=== PATIENT | female | born 2005 | race Caucasian/White ===

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

== ENCOUNTER 2024-04-28 00:34 | Observation (INO) | payer OTHER ==
[2024-04-28] VITALS (10 sets, daily range): BP systolic 99–127; BP diastolic 41–82
[~2024-04-28] VITALS: Ht 160 cm; Wt 88.0 kg
[2024-04-28] MEDS ORDERED: HYDROXYZINE PA100 MG PO (00:43)
[2024-04-28] MEDS ORDERED: DEPAKOTE ER500 MG PO (00:43)
[2024-04-28] MEDS ORDERED: EFFEXOR XR75 MG PO (00:43)
[2024-04-28 00:53] LABS: BASOPHILS 0.4 % (0-2); EOSINOPHILS 0.5 % (0-6); HEMATOCRIT 43.8 % (35.0-50.0); HEMOGLOBIN 14.8 g/dL (12.0-18.0); LYMPHOCYTES 32.8 % (24-44); MCH 29.1 (27-36); MCHC 33.9 g/dl (30-36); MCV 85.9 fl (81-99); MONOCYTES 4.4 % (0-12); NEUTROPHILS 61.9 % (39-80); PLATELET COUNT 391 K/uL (140-440); RDW 14.4 (10.5-15.0)
[2024-04-28 01:21] LABS: ACETAMINOPHEN 0 ug/mL (10-30); ALBUMIN 4.3 g/dL (3.4-5.0); ALBUMIN/GLOBULIN RATIO 1.02 (1.1-2.4); ALCOHOL, MEDICAL 181 ng/dL (<3); ALKALINE PHOSPHATASE 58 U/L (46-116); ALT (SGPT) 15 U/L (14-59); ANION GAP 19.7 (7-21); AST (SGOT) 10 U/L (15-37); BILIRUBIN, TOTAL 0.2 ng/dL (0.2-1.0); BUN/CREATININE RATIO 10.84 (6.0-28.6); CALCIUM 9.1 mg/dL (8.5-10.1); CARBON DIOXIDE 25 mmol/L (21-32); CHLORIDE 104 mmol/L (98-107); CREATININE, SERUM 0.83 mg/dL (0.55-1.02); GLOMERULAR FILTRATION RATE,EST 103 mL/min (>60); POTASSIUM 3.7 mmol/L (3.5-5.1); PROTEIN, TOTAL 8.5 g/dL (6.4-8.2); SALICYLATE 2.4 mg/dL (2.8-20.0); TSH, 3RD GENERATION 1.145 uIU/mL (0.516-4.130); UREA NITROGEN 9 mg/dL (7-18)
[2024-04-28 01:22] LABS: VALPROIC ACID 344 ug/mL (50-100)
[2024-04-28] MEDS ORDERED: LACTATED RINGER'S 1,000 ML IV ONE (01:30)
[2024-04-28] MEDS ORDERED: SODIUM CHLORIDE 0.9% 1,000 ML IV SCH (02:00)
[2024-04-28] MEDS ORDERED: ondansetron HCL 4 MG/2 ML VIAL IV PRN (02:00)
--- NOTE | 2024-04-28 03:35 | NUR ---
Patient arrives to CCU unit via stretcher. Agitated and anxious. Able to redirect with touch/talk at this time. VSS. Sinus tachy. Afebrile. Pt drowsy and declines to answer questions. Her friend Licha who patient had endorsed as her "" reports that she is actually the patient's brother's fiancee. Allowed to be in the room at this time. 1:1 sitter in room for direct observation. Seizure pads in place on bed. Hx and assessment complete to best of ability with patient refusing to answer questions.
--- NOTE | 2024-04-28 04:20 | NUR ---
Patient vomiting. PRN IV zofran administered. Ice chips given to patient. Passed bedside swallow eval. 1:1 direct obs sitter in room.
[2024-04-28 05:34] LABS: BILIRUBIN, URINE NEGATIVE (negative); BLOOD/HGB, URINE NEGATIVE (Negative); KETONE, URINE TRACE (Negative); LEUK ESTERASE, URINE NEGATIVE (negative); NITRITE, URINE POSITIVE (negative); PH, URINE 6.5 (5-7)
[2024-04-28 05:53] LABS: BACTERIA, URINE 4+ /hpf (negative); CASTS, URINE NONE SEEN \\lpf; COLLECTION TYPE, URINE CLEAN CATCH; CRYSTALS, URINE NONE SEEN (0-1+); EPITHELIAL CELLS, URINE SQUAMOUS 1+ /lpf (0-1+); RED BLOOD CELLS, URINE 0-1 /hpf (0-5); REFLEX CULTURE, URINE Yes (No)
[2024-04-28 05:54] LABS: AMPHETAMINES, URINE NEGATIVE (NEGATIVE); BARBITURATES, URINE NEGATIVE (NEGATIVE); BENZODIAZEPINE, URINE NEGATIVE (NEGATIVE); BUPRENORPHINE, URINE NEGATIVE (NEGATIVE); CANNABINOID, URINE POSITIVE (NEGATIVE); COCAINE, URINE NEGATIVE (NEGATIVE); ECSTASY, URINE NEGATIVE (NEGATIVE); FENTANYL, URINE NEGATIVE (NEGATIVE); METHADONE, URINE NEGATIVE (NEGATIVE); OPIATES, URINE NEGATIVE (NEGATIVE); OXYCODONE, URINE NEGATIVE (NEGATIVE); PHENCYCLIDINE, URINE NEGATIVE (NEGATIVE)
--- NOTE | 2024-04-28 06:38 | NUR ---
Patient resting in bed with eyes closed, even and unlabored respirations. VSS. Patient IVF infusing WNL. 1:1 sitter in room for direct observation. Patient brother in room.
--- NOTE | 2024-04-28 07:59 | NUR ---
in room after report from night assistant, pt restless with eyes closed, left arm iv occluding with bending arm. lab in for draw - pt irritated with lab, moaning for bp and tossing around in bed. continues to bend arm with iv. 1;1 sitter for safety in room.
--- NOTE | 2024-04-28 08:06 | NUR ---
pt takes drink of ice water and vomits 300 ml of water.
--- NOTE | 2024-04-28 08:09 | NUR ---
pt insists on eating after vomiting, takes orange slices from tray to eat. asks to go home. sitter in room.
[2024-04-28 08:12] LABS: BASOPHILS 1.9 % (0-2); EOSINOPHILS 0.2 % (0-6); HEMOGLOBIN 12.6 g/dL (12.0-18.0); LYMPHOCYTES 33.2 % (24-44); MCH 28.2 (27-36); MCV 85.5 fl (81-99); MONOCYTES 1.5 % (0-12); NEUTROPHILS 63.2 % (39-80); PLATELET COUNT 296 K/uL (140-440); RBC 4.45 M/ul (4.3-5.7); RDW 14.3 (10.5-15.0)
[2024-04-28 08:41] LABS: ALBUMIN 3.3 g/dL (3.4-5.0); ALBUMIN/GLOBULIN RATIO 0.94 (1.1-2.4); ANION GAP 16.5 (7-21); BILIRUBIN, TOTAL 0.4 ng/dL (0.2-1.0); BUN/CREATININE RATIO 7.69 (6.0-28.6); CALCIUM 8.2 mg/dL (8.5-10.1); CREATININE, SERUM 0.78 mg/dL (0.55-1.02); MAGNESIUM 2.1 mg/dL (1.8-2.4); POTASSIUM 4.5 mmol/L (3.5-5.1); PROTEIN, TOTAL 6.8 g/dL (6.4-8.2)
[2024-04-28 08:42] LABS: SALICYLATE 1.2 mg/dL (2.8-20.0)
[2024-04-28 08:43] LABS: VALPROIC ACID 286 ug/mL (50-100)
--- NOTE | 2024-04-28 08:45 | NUR ---
quality improvement coordinator (rn) prabhjot notified dr of pt wanting to leave and being restless, prabhjot called [facility] to notify of pt status and check in. Current confirm no hold, but suicide watch. oliver and dianna checked room and documented on ligature form.
--- NOTE | 2024-04-28 08:51 | NUR ---
[facility] CALLED TO UPDATE THEM ON PATIENT'S STATUS. THEY STATE THEY WILL BE IN TO SEE HER AT SOME POINT TODAY.
--- NOTE | 2024-04-28 09:01 | NUR ---
8 am labs salicates and depakote levels improved. pt resting on side with sitter in room. resp rate reg, eyes closed. iv fusing.
--- NOTE | 2024-04-28 10:03 | NUR ---
pt talkative and cooperative with dr rodas in room. [facility] staff here at desk, pt ok to shower today.
[2024-04-28] MEDS ORDERED: CEFTRIAXONE/SODIUM CHLORIDE 1 GM/100 ML PIGGYBACK IV SCH (10:09)
--- NOTE | 2024-04-28 10:25 | NUR ---
pt in bed resting and talking with [facility]. pt understands he is writing a saftey plan and if she attempts to leave [facility]a - he has instucted hospital staff to call [facility] and police, pt should not leave [facility]a - she agrees to the plan - the alternative is that he place her on a MH hold. she agrees with him to stay until provides with dc. pt is alert and gives date, time and phone number to [facility] staff. pt understands that [facility] will call and check in daily. goal for this week is to get home before dark and go to outpt treatment and go to work, hopefully this friday at new job. goal to make safety plan with [facility] now. 1;1 sitter and rn in room at this time.
--- NOTE | 2024-04-28 10:57 | NUR ---
poison control pharmacy [facility] called and will fax reccomended orders for lcarnitine q4 hours at 15 mg/kg with 2 doses given before a recheck of labs depakote, ammonia and liver functions. no need to re check asa level. benzo will be drug of choice for agitation and aim for lab re draw at 1600 today.
--- NOTE | 2024-04-28 11:58 | NUR ---
pt up to shower on own, steady, alert and oriented. linen changed on bed and set up lunch in area. tooth brush and am care items provided in bathroom. rn in room, iv sl and covered. pt denies pain or needs. thankful to rn for help.
--- NOTE | 2024-04-28 12:04 | NUR ---
ALERT AND ORIENTED. STATES SHE LIVES IN A HOUSE, WITH OTHERS. SHE HAS NO DME. SHE IS ABLE TO DRIVE. NO FINANCIAL CONCERNS. PATIENT RECENTLY RETURNED FROM [place] AND IS IN NEED OF PCP. PATIENT ALSO STATES SHE WOULD LIKE TO BE SEEN AT [facility] A NEW PATIENT, BUT HAS NOT YET BEEN PLACED ON THEIR LIST. CALLED [facility]. NO ANSWER. MESSAGE LEFT TO PLEASE CALL BACK TO DISCUSS PLACING A PATIENT ON THEIR WAITING LIST SO SHE CAN EVENTUALLY BECOME A PATIENT. CALL BACK NUMBER LEFT.
[2024-04-28] MEDS ORDERED: ACETAMINOPHEN 325 MG TAB PO PRN (12:15)
[2024-04-28] MEDS ORDERED: PROCHLORPERAZINE EDISYLATE 10 MG/2 ML VIAL IV PRN (12:15)
[2024-04-28] MEDS ORDERED: bisacodyL 10 MG SUPP PR PRN (12:15)
--- NOTE | 2024-04-28 12:27 | NUR ---
call to to update on faxed orders from [facility] - dr aware and agrees - see orders. aware of no longer being a 1;1 or suicide watch. pt resting on phone in room. rn checked with chart and supervisor pile driving she does not have a phone or keys here at hospital. - pt informed and agrees.
--- NOTE | 2024-04-28 12:57 | NUR ---
pt resting in bed, monitors on hr 76 - po med given and labs ordered. pt has call light in reach.
--- NOTE | 2024-04-28 14:04 | NUR ---
pt resting in bed, rn filled ice water. pt denies needs.
--- NOTE | 2024-04-28 14:23 | NUR ---
call to , clarify PT order. pt independent. dc pt order - amy PT aware.
--- NOTE | 2024-04-28 14:30 | NUR ---
PATIENT INFORMED SHE HAS BEEN PLACED ON WAIT LIST AT [facility]. NURSE STATES PATIENT HAS BEEN CLEARED BY [facility]. VOICES CONCERN ABOUT DC TRANSPORTATION, STATES PATIENT VERBALIZED SHE WOULD WALK WHEN DC'D. INFORMED THE PATIENT TRANSPORTATION CAN BE SET UP FOR HER WHEN SHE IS DISCHARGED TO HOME. VERBALIZES UNDERSTANDING.
--- NOTE | 2024-04-28 15:14 | NUR ---
pt assisted to walk to br. denies needs. family in room visiting.
--- NOTE | 2024-04-28 15:28 | NUR ---
UR CLINICAL REVIEW: [facility]-MEET OBS CRITERIA FOR DRUG INGESTION/OD ODS [facility] OBS 04/28/24 @ 1213 ORDER MATCHES REG NO AUTH REQUIRED FOR OBS VISIT DISCHARGE DISPOSITIN PENDING [facility] EVALUATION 04/29/24
[2024-04-28 16:18] LABS: ALBUMIN 3.6 g/dL (3.4-5.0); ALBUMIN/GLOBULIN RATIO 0.97 (1.1-2.4); ALKALINE PHOSPHATASE 52 U/L (46-116); ALT (SGPT) 21 U/L (14-59); AST (SGOT) 13 U/L (15-37); BILIRUBIN, DIRECT 0.1 mg/dL (0.0-0.2); BILIRUBIN, INDIRECT 0.4 (0.1-0.7); BILIRUBIN, TOTAL 0.5 ng/dL (0.2-1.0); PROTEIN, TOTAL 7.3 g/dL (6.4-8.2)
[2024-04-28 16:31] LABS: VALPROIC ACID 109 ug/mL (50-100)
--- NOTE | 2024-04-28 17:18 | NUR ---
PT AMB TO BR TO VOID, QS MISSED HAT. AMB UP AND SAT IN CHAIR. IV SL PT DOES NOT WANT A RE START OR NEW SITE. NEXT IV ABX 9 AM PT WANTS TO LEAVE FIRST THING IN AM. DR DURON. PT AGREES TO AM LABS AND IV ABX IN AM BEFORE PROBABLE DC HOME. PT PROVIDED 300 ML OF CRYSTAL LIGHT LEMONADE AND SOME CRAN JUICE FOR ENC. FLUIDS. DENIES NEEDS OR PAIN, NOW HAS HER CELL PHONE FROM HOME THAT FRIEND HAS BROUGHT HER TODAY.
--- NOTE | 2024-04-28 17:30 | NUR ---
pt up in chair eating and talking on phone. call light in reach.
--- NOTE | 2024-04-28 19:23 | NUR ---
visited with pt at end of this rn shift - pt is alert and oriented resting in bed with fluids at bedside. call light in reach - pt denies pain and we talked about abx and labs in am, will round and possible dc to home with plan to f/u with [facility] and new PCP to f/u uti. pt verbalized understanding and is calm and alert at this time. pt asked if s/o could visit - let her know it is prefered not at night unless emergency and she needed to rest. enc to have visitors in am. menu to pt to pick out breakfast and enc to order very early or day before. pt forward thinking and says see you in the morning when you come back to work.
--- NOTE | 2024-04-28 19:30 | NUR ---
SHIFT REPORT RECEIVED. PATIENT RESTING IN BED. EYES CLOSED. VS STABLE. CALL LIGHT IN REACH.
--- NOTE | 2024-04-28 21:19 | NUR ---
PATIENT WOKE EASILY TO VOICE. PROVIDED MEDS PER SCHEDULE. PATIENT DENIED ANY CONCERNS. PATIENT CALM, AAOX4. VS STABLE. PATIENT DENIED PAIN OR GI UPSET. DISCUSSED PLAN OF CARE, PATIENT VERBALIZED UNDERSTANDING. CALL LIGHT IN REACH.
--- NOTE | 2024-04-28 21:45 | NUR ---
patient up to the bathroom. steady on her feet. patient does request her iv site to be removed, educated on policy and safety of having iv site while in patient. patient agrees. warm blanket provided to help soothe area. no other needs at this time. call light in reach.
--- NOTE | 2024-04-28 22:08 | NUR ---
update provided to poison control; no new recommendations.
--- NOTE | 2024-04-28 23:03 | NUR ---
PATIENT UP TO THE SHOWER, THIS RN ASSISTED PATIENT TO SET UP AND COVERED IV SITE. NEW UNDERWEAR AND SOCKS OFFERED. PATIENT WANTS TO CONTINUE TO WEAR HER CLOTHES. PATIENT RETURNED TO BED AND DOCUMENTATION COORDINATOR PLACED BACK ON PATIENT. PATIENT PROVIDED FRESH ICE WATER. PATIENT'S PARTNER IN TO VISIT HER AT THIS TIME.
[2024-04-29 00:38] VITALS: BP 133/69
--- NOTE | 2024-04-29 00:45 | NUR ---
PATIENT PROVIDED MEDS PER SCHEDULE. PATIENT UP TO THE BATHROOM TO VOID. STEADY ON HER FEET. PATIENT DENIED OTHER NEEDS OR CONCERNS. CALL LIGHT IN REACH.
--- NOTE | 2024-04-29 03:45 | NUR ---
PATIENT VS STABLE. PATIENT RESTING IN BED. EYES CLOSED. ALLOW PATIENT TO REST. CALL LIGHT IN REACH.
[2024-04-29 04:13] VITALS: BP 108/47
--- NOTE | 2024-04-29 05:38 | NUR ---
PATIENT PROVIDED SCHEDULED MEDS. PATIENT IS SLIGHTLY IRRITABLE ABOUT LACK OF SLEEP AND THE MONITOR MAKING NOISE. PATIENT IS WANTING TO BE DISCHARGE THIS MORNING. DISCUSSED PLAN TO CHECK LABS AND RECEIVED IV ABX. ASSURED PATIENT THAT WHEN THE DOCTOR ROUNDS ON HER THIS MORNING SHE WILL HAVE AN OPORTUNITY TO HAVE QUESTIONS ANSWERED. PATIENT IS CALM AND AGREEABLE TO THIS. VS STABLE. DENIED GI UPSET OR PAIN. CALL LIGHT IN REACH.
[2024-04-29 05:55] LABS: ALBUMIN 3.5 g/dL (3.4-5.0); ALBUMIN/GLOBULIN RATIO 1.06 (1.1-2.4); ANION GAP 14.9 (7-21); BILIRUBIN, TOTAL 0.4 ng/dL (0.2-1.0); BUN/CREATININE RATIO 11.45 (6.0-28.6); CALCIUM 9.1 mg/dL (8.5-10.1); CREATININE, SERUM 0.96 mg/dL (0.55-1.02); POTASSIUM 3.9 mmol/L (3.5-5.1); PROTEIN, TOTAL 6.8 g/dL (6.4-8.2)
--- NOTE | 2024-04-29 07:37 | NUR ---
report from jhoana boyd, pt resting in bed wakes and says vinicius white board updated, hr 48, 99%ra. call light in reach.
--- NOTE | 2024-04-29 08:02 | NUR ---
in room with dr and pt to discuss plan of care. discussed and educated on macrobid and depakote.
[2024-04-29] MEDS ORDERED: DEPAKOTE ER500 MG PO (08:06)
[2024-04-29 08:30] VITALS: BP 129/80
[2024-04-29] MEDS ORDERED: MACROBID 100 M100 MG PO (09:09)
--- NOTE | 2024-04-29 11:11 | NUR ---
call to [facility] to notify of pt discharge.
[2024-04-29] MEDS ORDERED: PHARMACY RENAL DOSE ADJUSTMENT 1 DOSE MISC PO SCH (12:00)
== END 2024-04-29 09:00 | disposition home or self-care (01) ==
LOC: ED 00:34 → CCU 00:35
PROVIDERS: Internal Medicine; ADMIT Student in an Organized Health Care Education/Training Program; ATTEND Student in an Organized Health Care Education/Training Program
DX: T42.6X2A Poisoning by other antiepileptic and sedative-hypnotic drugs, intentional self-harm, initial encounter (principal); N39.0 Urinary tract infection, site not specified; F32.A Depression, unspecified; F60.89 Other specific personality disorders; Z79.899 Other long term (current) drug therapy
CPT/HCPCS: 36415; 80053; 80076; 80164; 80307; 81001; 82140; 83735; 84443; 84703; 85025; 87088; 96374; 96375; 96376; 99285; G0378; G0480; J0696; J2405; J7030; J7121

== ENCOUNTER 2025-01-03 21:12 | Emergency (ER) | payer OTHER ==
[~2025-01-03] VITALS: Ht 160 cm; Wt 89.0 kg
[~2025-01-03 21:12] MED LIST changes: +ATOMOXETINE HCL40 MG PO; +CLONIDINE HCL0.1 MG PO; +DEPAKOTE ER500 MG PO; +EFFEXOR XR150 MG PO; +EFFEXOR XR75 MG PO; +GABAPENTIN300 MG PO; +HYDROXYZINE PA100 MG PO; +MACROBID 100 M100 MG PO; +MIRTAZAPINE15 MG PO; +REMERON15 MG PO
--- OUTSIDE RECORDS SUMMARY | 2025-01-03 21:19 | XMS ---
PreManage Notification: KETTY GARCIA [employer] C[employer] Events No recent Security Events currently on file CRITERIA MET - [facility] - 2 Visits in 30 Days CARE PROVIDERS -, [facility]ist: Director Revenue Current Rian PHONE: [phone] [facility]Center: [facility] FAMILY PHONE: [phone] [facility] Current PHONE: Unknown [facility] has no Care Guidelines for this patient. [place] VISIT COUNT (12 MO.) 3 [facility] TOTAL 3 NOTE: Visits indicate total known visits. ED/UCC VISIT TRACKING (12 MO.) 01/03/2025 21:12 [facility] [place] TYPE: Emergency COMPLAINT: - PAIN 12/18/2024 10:53 [facility] [place] TYPE: Emergency COMPLAINT: - SKIN PROBLEM DIAGNOSES: - Retained foreign body in left upper eyelid 04/28/2024 00:34 [facility] [place] TYPE: Emergency COMPLAINT: - OD INPATIENT VISIT TRACKING (12 MO.) 04/28/2024 00:35 [facility] [place] TYPE: Observation COMPLAINT: - DEPAKOTE OVERDOSE-INTENTIONAL DIAGNOSES: - Depression, unspecified - Other hotel server (current) drug therapy - Other specific personality disorders - Poisoning by other antiepileptic and sedative-hypnotic drugs, intentional self-harm, initial encounter - Urinary tract infection, site not specified [email or web address]
[2025-01-03 22:32] VITALS: BP 137/87
== END 2025-01-03 22:33 | disposition home or self-care (01) ==
LOC: ED 21:12
DX: S70.12XA Contusion of left thigh, initial encounter (principal); S50.02XA Contusion of left elbow, initial encounter; Z79.899 Other long term (current) drug therapy; Y35.813A Legal intervention involving manhandling, suspect injured, initial encounter
CPT/HCPCS: 73080; 99283